=== PATIENT | male | born 1955 | race Caucasian/White ===

== ENCOUNTER 2022-10-13 07:43 | Outpatient (CLI) | payer MEDICARE ==
[2022-10-13 07:59] LABS: BASOPHILS # (AUTO) 0.1 10^3/uL (0.0-0.1); EOSINOPHILS # (AUTO) 0.2 10^3/uL (0.0-0.7); HCT - HEMATOCRIT 47.1 % (42.0-52.0); HGB - HEMOGLOBIN 15.2 g/dL (14.0-18.0); LYMPHOCYTES # (AUTO) 2.2 10^3/uL (1.5-3.5); MEAN CORPUSCULAR HEMOGLOBIN 31.3 pg (27.0-31.0); MEAN CORPUSCULAR HGB CONC 32.3 g/dL (32.0-36.0); MEAN CORPUSCULAR VOLUME 96.9 fL (80.0-94.0); MEAN PLATELET VOLUME 10.8 fL (7.4-11.4); MONOCYTES # (AUTO) 0.7 10^3/uL (0.0-1.0); MONOCYTES % (AUTO) 11.5 %; NEUTROPHILS # (AUTO) 3.1 10^3/uL (1.5-6.6); NEUTROPHILS % (AUTO) 49.2 %; PLT - PLATELET COUNT 205 10^3/uL (130-450); RED BLOOD COUNT 4.86 10^6/uL (4.70-6.10); RED CELL DISTRIBUTION WIDTH 14.1 % (12.0-15.0); WHITE BLOOD COUNT 6.3 x10^3/uL (4.8-10.8)
[2022-10-13 08:32] LABS: ALKALINE PHOSPHATASE 59 IU/L (42-121); ALT ALANINE AMINOTRANSFERASE 18 IU/L (10-60); AST ASPARTATE AMINOTRANSFERASE 22 IU/L (10-42); BILIRUBIN,TOTAL 0.7 mg/dL (0.2-1.0); BUN - BLOOD UREA NITROGEN 18 mg/dL (6-20); CALCIUM 9.2 mg/dL (8.5-10.3); CARBON DIOXIDE - CO2 24 mmol/L (21-32); CHLORIDE 109 mmol/L (101-111); CHOL/HDL RATIO 3.9 (<5.0); CHOLESTEROL 197 mg/dL; CREATININE 0.9 mg/dL (0.6-1.2); GFR - MDRD 84 (>89); GLUCOSE 101 mg/dL (70-100); HDL CHOLESTEROL 51 mg/dL; LDL CHOLESTEROL,CALCULATED 127 mg/dL; LDL/HDL RATIO 2.5 (<3.6); SODIUM 140 mmol/L (135-145); TOTAL PROTEIN 7.9 g/dL (6.7-8.2); TRIGLYCERIDES 97 mg/dL; VLDL CHOLESTEROL 19 mg/dL
[2022-10-13 09:27] LABS: PSA TOTAL 34.46 ng/mL (0.000-2.000)
[2022-10-13 09:55] LABS: PSA FREE 1.68 ng/mL (0.16-2.81)
[2022-10-13 10:28] LABS: FECAL OCCULT BLOOD (FIT) NEGATIVE (NEGATIVE)
== END 2022-10-13 07:44 | disposition home or self-care (01) ==
LOC: LAB 07:43
PROVIDERS: ATTEND Family Medicine
DX: Q89.01 Asplenia (congenital) (principal); Z12.5 Encounter for screening for malignant neoplasm of prostate; Z13.1 Encounter for screening for diabetes mellitus; Z13.220 Encounter for screening for lipoid disorders; Z12.11 Encounter for screening for malignant neoplasm of colon
CPT/HCPCS: 36415; 80053; 80061; 82274; 83721; 84153; 84154; 85025

== ENCOUNTER 2022-12-15 11:00 | Outpatient (CLI) | payer MEDICARE ==
[2022-12-15 11:16] LABS: BASOPHILS # (AUTO) 0.1 10^3/uL (0.0-0.1); EOSINOPHILS # (AUTO) 0.1 10^3/uL (0.0-0.7); EOSINOPHILS % (AUTO) 1.6 %; HCT - HEMATOCRIT 43.5 % (42.0-52.0); HGB - HEMOGLOBIN 14.4 g/dL (14.0-18.0); LYMPHOCYTES # (AUTO) 1.2 10^3/uL (1.5-3.5); LYMPHOCYTES % (AUTO) 18.2 %; MEAN CORPUSCULAR HEMOGLOBIN 31.9 pg (27.0-31.0); MEAN CORPUSCULAR HGB CONC 33.1 g/dL (32.0-36.0); MEAN CORPUSCULAR VOLUME 96.2 fL (80.0-94.0); MEAN PLATELET VOLUME 10.3 fL (7.4-11.4); MONOCYTES # (AUTO) 0.6 10^3/uL (0.0-1.0); MONOCYTES % (AUTO) 9.1 %; NEUTROPHILS # (AUTO) 4.8 10^3/uL (1.5-6.6); PLT - PLATELET COUNT 211 10^3/uL (130-450); RED BLOOD COUNT 4.52 10^6/uL (4.70-6.10); RED CELL DISTRIBUTION WIDTH 14.1 % (12.0-15.0); WHITE BLOOD COUNT 6.8 x10^3/uL (4.8-10.8)
[2022-12-15 11:30] LABS: CREATININE 0.9 mg/dL (0.6-1.2); POTASSIUM 3.9 mmol/L (3.5-5.0)
[2022-12-15 12:13] LABS: ESTIMATED AVERAGE GLUCOSE 100 mg/dL (70-100); HEMOGLOBIN A1c% 5.1 % (4.27-6.07)
== END 2022-12-15 11:01 | disposition home or self-care (01) ==
LOC: LAB 11:00
PROVIDERS: ATTEND Urology
DX: Z01.818 Encounter for other preprocedural examination (principal)
CPT/HCPCS: 36415; 80048; 83036; 85025; 93005

== ENCOUNTER 2023-02-23 12:00 | Outpatient (CLI) | payer MEDICARE | END 2023-02-23 23:59 | disposition critical access hospital (66) | LOC: EMS 12:00 | DX: R55 Syncope and collapse (principal); R41.0 Disorientation, unspecified; S01.81XA Laceration without foreign body of other part of head, initial encounter; W18.39XA Other fall on same level, initial encounter; Y93.A1 Activity, exercise machines primarily for cardiorespiratory conditioning; Y92.39 Other specified sports and athletic area as the place of occurrence of the external cause | CPT/HCPCS: A0425; A0429 ==

== ENCOUNTER 2023-02-23 12:20 | Emergency (ER) | payer MEDICARE ==
--- NOTE | 2023-02-23 12:38 | ED Physician Documentation ---
PD HPI SYNCOPE - Stated complaint Stated Complaint: GLF - Chief complaint Chief Complaint: Trauma Hd/Nk - History obtained from History obtained from: Patient - History of Present Illness Witnessed: Witnessed Timing - onset: How many minutes ago (30) Duration: Seconds (he was working out at gym in [place], with workout being a typical effort amount and strenuous as usual. Had gotten off treadmill after usual time duration, with max heart rate being 150-160, which is his target HR usually. He was getting off it and then remembers lying on floor.) Preceding symptoms: No: Headache, Chest pain, Abdominal pain, Generalized weakness Associated symptoms: Abdominal pain. No: Headache, Chest pain, Nausea / vomiting Contributing factors: Decreased PO intake (he says he had just samll amount breakfast this morning, but had had coffee and water.). No: Recent med change, Noxious stimulae Injury occurred: Head injury Similar symptoms before: Has not had sx before Recently seen: Not recently seen Review of Systems Constitutional: denies: Fever, Chills Nose: denies: Rhinorrhea / runny nose, Congestion Throat: denies: Sore throat Cardiac: denies: Chest pain / pressure, Palpitations, Pedal edema, Calf pain Respiratory: denies: Dyspnea, Cough GI: denies: Abdominal Pain, Vomiting, Diarrhea, Bloody / black stool Neurologic: reports: Head injury, LOC (possibly - either syncope and fall, or fell getting off treadmill and struck head with some concussive symptoms and brief anmesia.). denies: Focal weakness, Numbness PD PAST MEDICAL HISTORY - Past Medical History Cardiovascular: Hypertension Respiratory: None Neuro: None Endocrine/Autoimmune: None GI: None Psych: None Musculoskeletal: None - Allergies Allergies/Adverse Reactions: Allergies Allergy/AdvReac Type Severity Reaction Status Date / Time No Known Drug Allergies Allergy Verified 02/23/23 12:32 - Living Situation Living Situation: reports: With spouse/s.o. Living Arrangement: reports: At home PD ED PE NORMAL - Vitals Vital signs reviewed: Yes - General General: Alert and oriented X 3, No acute distress - HEENT HEENT: PERRL, EOMI, Other (left periorbital area with tenderness lateral and in eyelid area. There is laceration upper eyelid to fatty tissue. ) - Neck Neck: Supple, no meningeal sign, No bony TTP - Cardiac Cardiac: RRR, No murmur - Respiratory Respiratory: Clear bilaterally - Abdomen Abdomen: Soft, Non tender - Back Back: No CVA TTP - Derm Derm: Normal color, Warm and dry - Extremities Extremities: Normal ROM s pain, No edema, No calf tenderness / cord - Neuro Neuro: Alert and oriented X 3, production corrugator 2-12 intact, No motor deficit, No sensory deficit, Normal speech Eye Opening: Spontaneous Motor: Obeys Commands Verbal: Oriented GCS Score: 15 Results - Vitals Vitals: Vital Signs - 24 hr 02/23/23 02/23/23 12:26 13:56 Temperature 36.2 C L Heart Rate 74 72 Respiratory 15 16 Rate Blood Pressure 110/87 H 127/94 H O2 Saturation 97 98 Oxygen O2 Source Room air - Labs Labs: Laboratory Tests 02/23/23 02/23/23 02/23/23 13:06 13:06 13:06 WBC 9.4 RBC 4.40 L Hgb 13.5 L Hct 41.6 L MCV 94.5 H MCH 30.7 MCHC 32.5 RDW 14.0 Plt Count 286 MPV 10.1 Neut # (Auto) 7.9 H Lymph # (Auto) 0.9 L Crowley # (Auto) 0.5 Eos # (Auto) 0.0 Baso # (Auto) 0.1 Absolute Nucleated RBC 0.00 Nucleated RBC % 0.0 Sodium 139 Potassium 4.1 Chloride 106 Carbon Dioxide 25 Anion Gap 8.0 BUN 17 Creatinine 1.0 Estimated GFR (MDRD) 74 L Glucose 109 H Calcium 9.1 Magnesium 2.1 Total Bilirubin 1.0 AST 21 ALT 19 Alkaline Phosphatase 63 Troponin I High Sens 3.2 Total Protein 7.7 Albumin 3.9 Globulin 3.8 Albumin/Globulin Ratio 1.0 Lipase 40 - Rads (name of study) head CT Relevant Findings:: Prelim report reviewed, EMP independent interpretation of test (no ICH nor fractures. ), See rad report orbits CT Relevant Findings:: Prelim report reviewed, EMP independent interpretation of test (he was injured periorbital and I wanted imaging. Lower face not injuryed, so did orbits view. ), See rad report Procedures - Laceration (location) left upper eyelid Length in cm: 1.4 Wound type: Linear, Into subcut fat, Clean Neurovascular status: Motor intact Anesthesia: Lidocaine 1% with epi Wound preparation: Irrigated copiously NS, Wound explored, To the base Skin layer closure: Nylon, Running, Size #-0 - enter number (6), Sutures - enter # (7) Other: Patient tolerated well, No complications, Tetanus UTD PD Medical Decision Making - ED course Complexity details: considered differential (no symptoms while exercising. was getting off treadmill and bystanders noted that he fell versus fainted and struck face on weight stand. Awake within under a minute. EMS called and he was fully alert and conversant on their arrival. ), d/w patient Departure - Departure Disposition: 01 Home, Self Care Clinical Impression: Syncope, Eyelid laceration, Fall, Mild concussion Condition: Stable Record reviewed to determine appropriate education?: Yes Instructions: ED Laceration Facial Sutr Tape Comments: It is okay to wash and shower. Clean off the wound twice a day with soap and water, or peroxide and water. Apply some antibiotic ointment to it to keep it moist. Also to watch for signs of infection such as purulence, redness or increasing pain. Return to your primary care or the ER at the specified time for suture removal. Suture removal 6 to 7 days. Your basic blood test as well as EKG and vital signs are normal. No obvious explanation for your apparent fainting episode. In particular no obvious serious cause. Presume a transient drop in blood pressure led to the symptoms. Your head and orbit CT scans do not show any fractures or deep bleeding. Other consideration for your episode could potentially have been a mechanical fall or trip with subsequently hitting your face and having a mild concussion. With either explanation, since you are looking so good at this time and no signs of more significant problems, I would just suggest regular activity and good hydration. Perhaps no working out for a day or 2 unless you are feeling completely well. Follow-up with your primary care or walk-in or such if you have recurring lightheaded episodes or symptoms. Discharge Date/Time: 02/23/23 13:59
[2023-02-23 13:11] LABS: BASOPHILS # (AUTO) 0.1 10^3/uL (0.0-0.1); BASOPHILS % (AUTO) 0.5 %; EOSINOPHILS % (AUTO) 0.3 %; HCT - HEMATOCRIT 41.6 % (42.0-52.0); HGB - HEMOGLOBIN 13.5 g/dL (14.0-18.0); LYMPHOCYTES # (AUTO) 0.9 10^3/uL (1.5-3.5); LYMPHOCYTES % (AUTO) 9.3 %; MEAN CORPUSCULAR HEMOGLOBIN 30.7 pg (27.0-31.0); MEAN CORPUSCULAR HGB CONC 32.5 g/dL (32.0-36.0); MEAN CORPUSCULAR VOLUME 94.5 fL (80.0-94.0); MEAN PLATELET VOLUME 10.1 fL (7.4-11.4); MONOCYTES # (AUTO) 0.5 10^3/uL (0.0-1.0); MONOCYTES % (AUTO) 5.7 %; NEUTROPHILS # (AUTO) 7.9 10^3/uL (1.5-6.6); NEUTROPHILS % (AUTO) 83.8 %; PLT - PLATELET COUNT 286 10^3/uL (130-450); WHITE BLOOD COUNT 9.4 x10^3/uL (4.8-10.8)
[2023-02-23 13:23] LABS: ALBUMIN 3.9 g/dL (3.2-5.5); CALCIUM 9.1 mg/dL (8.5-10.3); MAGNESIUM 2.1 mg/dL (1.7-2.8); POTASSIUM 4.1 mmol/L (3.5-5.0); TOTAL PROTEIN 7.7 g/dL (6.7-8.2)
--- NOTE | 2023-02-23 13:25 | CT Report ---
PROCEDURE: HEAD WO INDICATIONS: fall/syncope with facial injury TECHNIQUE: Noncontrast 4.5 mm thick angled axial sections acquired from the foramen magnum to the vertex. For r adiation dose reduction, the following was used: automated exposure control, adjustment of mA and/or kV according to patient size. COMPARISON: None. FINDINGS: Image quality: Excellent. CSF spaces: Basal cisterns are patent. No extra-axial fluid collections. Ventricles are normal in size and shape. Brain: No midline shift. No intracranial masses or hemorrhage. Lozano-white matter interface is norm al. Skull and face: Calvarium and visualized facial bones are intact, without suspicious lesions. Sinuses: Minimal left maxillary sinus mucosal thickening. Other paranasal sinuses that are visualized as well as the mastoids are clear. IMPRESSION: No acute intracranial pathology Reviewed by: Dylan Romero MD on 02/23/2023 1:24 PM PDT Approved by: Dylan Romero MD on 02/23/2023 1:24 PM PDT Station ID: [id number]
--- NOTE | 2023-02-23 13:27 | CT Report ---
PROCEDURE: ORBITS WO INDICATIONS: fall with left orbital area injury TECHNIQUE: Noncontrast 2.0 mm axial images acquired through the orbits. For radiation dose reduction, the follo wing was used: automated exposure control, adjustment of mA and/or kV according to patient size. COMPARISON: CT head from the same date FINDINGS: Image quality: Excellent. Orbits: Left preorbital thickening/swelling. Globes are symmetrical. No metallic foreign bodies. T he optic nerves are normal in size. No retrobulbar masses or fat abnormalities. The extra-ocular mu scles are normal and symmetrical in appearance. Lacrimal glands are normal in size. Optic chiasm is normal. Intracranial: Visualized portions of the cerebral hemispheres, brainstem, and spinal cord are normal . Bones and sinuses: Visualized calvarium and facial bones appear intact. Visualized sinuses and mast oids are clear. IMPRESSION: There is left preorbital edema. The left globe is intact. No orbital fractures are noted. No maxillar y sinus air-fluid levels. Reviewed by: Dylan Romero MD on 02/23/2023 1:26 PM PDT Approved by: Dylan Romero MD on 02/23/2023 1:26 PM PDT Station ID: [id number]
[2023-02-23 13:58] VITALS: BP 127/94
== END 2023-02-23 13:59 | disposition home or self-care (01) ==
LOC: EDUNIT# → ED 12:20
DX: S01.112A Laceration without foreign body of left eyelid and periocular area, initial encounter (principal); W19.XXXA Unspecified fall, initial encounter; Y93.A1 Activity, exercise machines primarily for cardiorespiratory conditioning
CPT/HCPCS: 12011; 36415; 80053; 83690; 83735; 84484; 85025; 93005; 99283; 99284